=== PATIENT | male | born 1990 | race Caucasian/White ===

== ENCOUNTER 2018-12-14 11:26 | Emergency (ER) | payer BC ==
[~2018-12-14] VITALS: Ht 172.7 cm; Wt 104.3 kg
== END 2018-12-14 13:29 | disposition home or self-care (01) ==
LOC: ER 11:26
DX: L56.8 Other specified acute skin changes due to ultraviolet radiation (principal); X32.XXXA Exposure to sunlight, initial encounter; Y93.89 Activity, other specified; Y92.89 Other specified places as the place of occurrence of the external cause; Y99.8 Other external cause status